=== PATIENT | female | born 1975 | race Caucasian/White ===

== ENCOUNTER 2018-02-25 08:57 | Emergency (ER) | payer OTHER ==
[2018-02-25 09:21] VITALS: BMI 26.5
[2018-02-25] MEDS ORDERED: ACETAMINOPHEN 1000 MG/100 ML VIAL (NON FORMULARY) IVPB ONE (09:37)
[2018-02-25] MEDS ORDERED: SODIUM CHLORIDE 1,000 ML IV STA (09:37)
--- NOTE | 2018-02-25 09:46 | PDOC ---
History of Present Illness - General Chief Complaint: Lightheaded Stated Complaint: DIZZINESS - History of Present Illness Initial Comments: 02/25/18 09:50 The patient is a 42 year old female with no significant PMH who presents to the emergency department with lightheadedness and vaginal bleeding for several days. Pt states that she started having vaginal bleeding 15 days ago, describes it as spotting. Does not report any abnormally heavy bleeding. She states that her LMP was at the end of December and is usually regular and lasts for about 3 days. The patient reports some associated lower abdominal cramping. The patient denies any other symptoms. She denies any fever, chills, nausea, vomiting, diarrhea, constipation or urinary symptoms. She denies any chest pain , shortness of breath. The patient denies any other complaints. Past History - Past Medical History Allergies/Adverse Reactions: Allergies Allergy/AdvReac Type Severity Reaction Status Date / Time No Known Allergies Allergy Verified 11/12/17 07:16 Home Medications: Ambulatory Orders NK [No Known Home Medication] 11/12/17 COPD: No - Immunization History Immunization Up to Date: No - Suicide/Smoking/Psychosocial Hx Smoking History: Never smoked Have you smoked in the past 12 months: No Information on smoking cessation initiated: No Hx Alcohol Use: No Drug/Substance Use Hx: No Substance Use Type: None Review of Systems - Review of Systems Comments:: 02/25/18 09:49 "GENERAL/CONSTITUTIONAL: + lightheadedness, No fever or chills. No weakness. HEAD, EYES, EARS, NOSE AND THROAT: No change in vision. No ear pain or discharge. No sore throat. CARDIOVASCULAR: No chest pain, no shortness of breath, no loss of consciousness RESPIRATORY: No cough, wheezing, or hemoptysis. GASTROINTESTINAL: No nausea, vomiting, diarrhea or constipation. GENITOURINARY: + vaginal bleeding, No dysuria, frequency, or change in urination. MUSCULOSKELETAL: No joint or muscle swelling or pain. No neck or back pain. SKIN: No rash NEUROLOGIC: No vertigo, no change in strength/sensation. ENDOCRINE: No increased thirst. No abnormal weight change. HEMATOLOGIC/LYMPHATIC: No anemia, easy bleeding, or history of blood clots. ALLERGIC/IMMUNOLOGIC: No hives or skin allergy. *Physical Exam - Vital Signs Last Vital Signs Temp Pulse Resp BP Pulse Ox 98.3 F 68 18 123/63 100 02/25/18 08:58 02/25/18 08:58 02/25/18 08:58 02/25/18 08:58 02/25/18 08:58 - Physical Exam Comments: 02/25/18 09:48 "GENERAL: Awake, alert, and fully oriented, in no acute distress. HEAD: No signs of trauma EYES: PERRLA, EOMI, sclera anicteric, conjunctiva clear ENT: Auricles normal inspection, hearing grossly normal, nares patent, oropharynx clear without exudates. Moist mucosa NECK: Nontender, no stepoffs, Normal ROM, supple, no lymphadenopathy, JVD, or masses LUNGS: Breath sounds equal, clear to auscultation bilaterally. No wheezes, and no crackles HEART: Regular rate and rhythm, normal S1 and S2, no murmurs, rubs or gallops ABDOMEN: Soft, + diffuse lower abdominal tenderness most pronounced in suprapubic region, normoactive bowel sounds. No guarding, no rebound. No masses EXTREMITIES: Normal range of motion, no edema. No clubbing or cyanosis. No cords, erythema, or tenderness NEUROLOGICAL: Cranial nerves II through XII intact. 5/5 strength and sensation in all extremities, Normal speech, normal gait, normal cerebellar function SKIN: Warm, Dry, normal turgor, no rashes or lesions noted. : scant blood in vault, os closed, mild adnexal tenderness bilaterally, no CMT ED Treatment Course - LABORATORY CBC & Chemistry Diagram: 02/25/18 10:00 02/25/18 10:00 - RADIOLOGY Radiology Studies Ordered: Category Date Time Status TRANSVAGINAL ULTRASOUND US [US] Stat Ultrasound 02/25/18 09:35 Ordered Medical Decision Making - Medical Decision Making 02/25/18 09:40 42 F with vaginal bleeding x 6 days and lightheadedness. Pt HD stable but will evaluate for symptomatic anemia. Pt's exam notable for suprapubic and diffuse lower abdominal tenderness, likley 2/2 menstrual cramping. Will r/o ectopic vs miscarriage with UPT. Also check UA for cystitis. Low suspicion for appy or colitis as pt with no focal tenderness at mcburney's, no significant LLQ tenderness. However, will consider CT imaging if pt's pain persists. - Labs, UA, UPT - EKG - TVUS - Consider CT 02/25/18 12:47 UPT positive Labs otherwise wnl TVUS pending 02/25/18 14:16 TVUS shows thickened endometrium, no IUP. No adnexal masses or other signs of ectopic. + R ovarian simple cyst Pt is well appearing, with normal vitals. Clinically stable for DC at this time. I discussed the physical exam findings, ancillary test results and final diagnoses with the patient. I answered all of the patient's questions. The patient was satisfied with the care received and felt comfortable with the discharge plan and treatment plan. The patient agrees to follow up with the primary care physician within 24-72 hours. *DC/Admit/Observation/Transfer Diagnosis at time of Disposition: Vaginal bleeding during - Discharge Dispostion Disposition: HOME - Referrals Referrals: Lindsay Campa MD [Staff Physician] - - Patient Instructions Printed Discharge Instructions: DI for Vaginal Bleeding During Additional Instructions: You are . However, we could not see the baby on your ultrasound today. This could be because it is still too early in your to see the baby, or it could mean you are miscarrying. You must follow up with an entry level within 1 week to have a repeat ultrasound and blood tests. There is a possibility you may also have an ectopic , a potentially life threatening emergency. If you experience any worsening bleeding, pain, fevers, or any other concerning symptoms, return to the ER immediately. Ests embarazada. Sin embargo, hoy no pudimos jc al beb en carson ultrasonido. [place] podra deberse a que todava es muy temprano en carson embarazo para jc al beb, o podra significar que est abortando. Debe realizar un seguimiento con un obstetra / gineclogo dentro de 1 semana para que le realicen jono ecografa y exmenes de rosalie repetidos. Existe la posibilidad de que tambin tenga un embarazo ectpico, jono emergencia potencialmente mortal. Si experimenta algn empeoramiento del sangrado, dolor, fiebre o cualquier otro sntoma relacionado, regrese a la edvin de emergencias inmediatamente. - Post Discharge Activity - Attestations Physician Attestion: 02/25/18 14:21 I, Dr. Mg Figueroa MD, attest that this document has been prepared under my direction and personally reviewed by me in its entirety. I further attest, that it accurately reflects all work, treatment, procedures and medical decision -making performed by me.
[2018-02-25 10:20] LABS: BASO % 0.8 % (0-2.0); HEMATOCRIT 28.7 % (32.4-45.2); HEMOGLOBIN 9.3 GM/dL (10.7-15.3); LYMPH % 46.6 % (8-40); MCH 24.1 pg (25.7-33.7); MCHC 32.4 g/dl (32.0-36.0); MEAN CELL VOLUME 74.3 fl (80-96); MEAN PLT VOLUME 7.6 fl (7.5-11.1); MONO % 8.9 % (3.8-10.2); NEUT % 42.7 % (42.8-82.8); PLATELET COUNT 288 K/MM3 (134-434); RBC 3.87 M/mm3 (3.60-5.2); WHITE BLOOD COUNT 4.3 K/mm3 (4.0-10.0)
[2018-02-25 10:50] LABS: ALBUMIN 3.8 g/dl (3.4-5.0); ALK PHOS 58 U/L (45-117); ANION GAP 5 MMOL/L (8-16); BILIRUBIN,TOTAL 0.6 mg/dL (0.2-1); BLOOD UREA NITROGEN 12 mg/dL (7-18); CALCIUM 8.6 mg/dL (8.5-10.1); CHLORIDE 105 mmol/L (98-107); CO2 28 mmol/L (21-32); CREATININE 0.6 mg/dL (0.55-1.3); GLUCOSE,RANDOM 79 mg/dL (74-106); SGOT/AST 9 U/L (15-37); SGPT/ALT 16 U/L (13-61); SODIUM 138 mmol/L (136-145); TOT PROT 7.3 g/dl (6.4-8.2)
[2018-02-25 12:13] LABS: HCG,QUALITATIVE URINE Positive
[2018-02-25 12:28] LABS: URINE APPEARANCE CLEAR; URINE BILIRUBIN NEGATIVE (<2.0 mg/dL); URINE COLOR COLORLESS; URINE GLUCOSE (UA) NEGATIVE (NEGATIVE); URINE KETONE NEGATIVE (NEGATIVE); URINE LEUK ESTERASE NEGATIVE (NEGATIVE); URINE NITRITE NEGATIVE (NEGATIVE); URINE PROTEIN NEGATIVE (NEGATIVE); URINE UROBILINOGEN NEGATIVE mg/dL (0.2-1.0)
[2018-02-25 12:30] LABS: EPI CELLS RARE /HPF (FEW)
[2018-02-25 15:35] VITALS: BP 107/66; PULSE 72; TEMP 98.8
--- NOTE | 2018-02-26 11:49 | EKG ---
Test Reason : Blood Pressure : / mmHG Vent. Rate : 057 BPM Atrial Rate : 057 BPM P-R Int : 142 ms QRS Dur : 076 ms QT Int : 416 ms P-R-T Axes : 065 069 052 degrees QTc Int : 404 ms SINUS BRADYCARDIA POSSIBLE LEFT ATRIAL ENLARGEMENT BORDERLINE ECG NO PREVIOUS ECGS AVAILABLE Confirmed by MICHELLE ALONZO, ANNETTE ([id number]) on 02/26/2018 11:48:27 AM Referred By: Confirmed By:ANNETTE MARTINEZ MD
== END 2018-02-25 15:35 | disposition home or self-care (01) ==
LOC: JER 08:57
PROC: 3E0337Z Introduction of Electrolytic and Water Balance Substance into Peripheral Vein, Percutaneous Approach (ICD-10-PCS; principal; 2018-02-25)
DX: O26.891 Other specified pregnancy related conditions, first trimester (principal); Z3A.01 Less than 8 weeks gestation of pregnancy; N93.9 Abnormal uterine and vaginal bleeding, unspecified
CPT/HCPCS: 36415; 76830-TC; 80053; 81003; 81015; 82550; 84484; 84702; 84703; 85025; 86850; 86900; 86901; 87086; 93005; 93010; 99282-25; J7030

== ENCOUNTER 2018-03-09 14:39 | Day surgery (SDC) | payer OTHER ==
[2018-03-03 17:56] VITALS: BMI 27.4
--- NOTE | 2018-03-09 14:55 | HP ---
History & Physical Update - History History: No Change - Physical Physical: No Change - Assessment Assessment: No Change - Plan Plan: No Change (incomplete . for suction D&C)
[2018-03-09] MEDS ORDERED: IBUPROFEN 800 MG/8 ML IJ IVPB PRN (14:56)
[2018-03-09] MEDS ORDERED: ACETAMINOPHEN 325 MG TABLET (FP) PO PRN (14:56)
[2018-03-09] MEDS ORDERED: LACTATED RINGERS SOLUTION 1,000 ML IV SCH ×2 (15:00→17:15)
--- NOTE | 2018-03-09 16:08 | HP ---
Admitting History and Physical - Admission Chief Complaint: Here for D&C History of Present Illness: 42 y/o with SIUP at unknown gestational age with LMP 01/01/18. PT seen in the office after having bleeding for several weeks and found to have an incomplete . BHCG approx 4500. No other issues/History. History Source: Patient, Medical Record Limitations to Obtaining History: Language Barrier - Past Medical History ...LMP: 01/11/18 ...LMP Comment: bleeding now ...: Yes (incomplete ) - Past Surgical History Additional Past Surgical History: breast reduction - Smoking History Smoking history: Never smoked Have you smoked in the past 12 months: No - Alcohol/Substance Use Hx Alcohol Use: No - Social History Usual Living Arrangement: Yes: With Spouse ADL: Independent History of Recent Travel: No Home Medications - Allergies Allergies/Adverse Reactions: Allergies Allergy/AdvReac Type Severity Reaction Status Date / Time No Known Allergies Allergy Verified 03/09/18 15:45 - Home Medications Home Medications: Ambulatory Orders Acetaminophen [Tylenol] 650 mg PO PRN PRN 03/09/18 Review of Systems - Review of Systems Constitutional: reports: No Symptoms Eyes: reports: No Symptoms HENT: reports: No Symptoms Neck: reports: No Symptoms Cardiovascular: reports: No Symptoms Respiratory: reports: No Symptoms Gastrointestinal: reports: No Symptoms Genitourinary: reports: No Symptoms Breasts: reports: No Symptoms Reported Musculoskeletal: reports: No Symptoms Integumentary: reports: No Symptoms Neurological: reports: No Symptoms Endocrine: reports: No Symptoms Hematology/Lymphatic: reports: No Symptoms Psychiatric: reports: No Symptoms Physical Examination Vital Signs: Vital Signs Temperature 98.2 F 03/09/18 15:43 Pulse Rate 68 03/09/18 15:43 Respiratory Rate 20 03/09/18 15:43 Blood Pressure 98/70 03/09/18 15:43 O2 Sat by Pulse Oximetry (%) 100 03/09/18 15:42 Constitutional: Yes: Well Nourished, No Distress, Calm Eyes: Yes: WNL HENT: Yes: WNL Neck: Yes: Supple Respiratory: Yes: Regular Renal/: Yes: Vaginal Bleeding (light/spotting) Neurological: Yes: Alert, Oriented Psychiatric: Yes: Alert, Oriented Problem List - Problems (1) Incomplete Code(s): O03.4 - INCOMPLETE SPONTANEOUS WITHOUT COMPLICATION Assessment/Plan 42 y/o with incomplete for suction D&C consents signed questions answered
[2018-03-09] MEDS ORDERED: MIDAZOLAM HCL 2 MG/2 ML SINGLE DOSE VIAL ONE ×2 (16:20)
[2018-03-09] MEDS ORDERED: PROPOFOL 20 ML ONE ×2 (16:36)
[2018-03-09] MEDS ORDERED: KETOROLAC TROMETHAMINE 30 MG/1 ML VIAL ONE (16:46)
[2018-03-09] MEDS ORDERED: PROMETHAZINE HCL 25 MG/1 ML VIAL IVPB PRN (17:02)
[2018-03-09] MEDS ORDERED: ONDANSETRON 4 MG/2 ML VIAL IVPUSH PRN (17:02)
[2018-03-09] MEDS ORDERED: oxyCODONE HCL 5 MG TABLET PO PRN (17:02)
[2018-03-09 17:44] VITALS: TEMP 98.2
[2018-03-09 18:31] VITALS: BP 107/54; PULSE 81
--- NOTE | 2018-03-11 10:26 | OP ---
Operative Note - Note: Operative Date: 03/09/18 Pre-Operative Diagnosis: incomplete Operation: Suction D&C Post-Operative Diagnosis: Same as Pre-op Surgeon: Ria Charlton Anesthesiologist/GENERAL MAINTENANCE TECHNICIAN: Aaron Guerrier Anesthesia: General (wtih LMA) Specimens Removed: products of conception Estimated Blood Loss (mls): 10 Operative Report Dictated: Yes
--- NOTE | 2018-03-11 11:18 | OP ---
DATE OF OPERATION: 03/09/2018 PREOPERATIVE DIAGNOSIS: Incomplete . POSTOPERATIVE DIAGNOSIS: Incomplete . PROCEDURE: Suction dilatation and curettage. SURGEON: Ria Charlton MD ANESTHESIA: General with LMA with Dr. Aaron Guerrier. BRAKE DRUM LATHE OPERATOR: None. COMPLICATIONS: None. SPECIMENS: Products of conception. ESTIMATED BLOOD LOSS: 10 mL. COUNTS: Sponge and instrument counts correct. DISPOSITION: Stable to PACU. BRIEF HISTORY AND PROCEDURE: Patient is a 42-year-old female who had been seen in the emergency department with bleeding during . She was evaluated after discharge in my office and found to have an incomplete spontaneous . Patient was counseled on her options, and she elected to undergo a D and C procedure to remove the remainder of the products of conception. The consent for the procedure was signed upon admission March 09, 2018. She was admitted to the hospital on that date and after consents were signed, she was then taken back to the operating room and given general anesthesia by Dr. Aaron Guerrier with LMA. She was placed in the dorsal lithotomy position. After the speculum were placed inside the vagina, the anterior lip of the cervix was grasped with a tenaculum, and the cervix was dilated to accommodate a size 7 suction curette, which was advanced to the fundus of the uterus. On several passes, the suction curette was completed, and the tissue was sent to Pathology for permanent evaluation. Using a sharp curette, sharp curettage was completed in all 4 pierce of the uterus until adequate uterine cry was appreciated, and one final pass of the suction curette was completed. All instruments were then removed from the vagina, and the bleeding from the tenaculum site was controlled with a brief application of an Allis clamp. Minimal bleeding was noted from the cervical os. Sponge and instrument counts were reported to be correct. The patient tolerated the procedure well and was recovering in stable condition in the PACU after the procedure. RIA CHARLTON DO /[id number]
--- NOTE | 2018-03-11 18:01 | PATH ---
Surgical Pathology Report Patient Name: YVONNE MARIA [facility]. Rec. #: [id number] /Age/Gender: 1975 (Age: 42) / F Account: [id number] Location: [facility] Taken: 03/09/2018 Received: 03/10/2018 Reported: 03/11/2018 Physicians: Ria Charlton M.D. Specimen(s) Received PRODUCTS OF CONCEPTION Clinical History Incomplete , possible molar Final Diagnosis PRODUCTS OF CONCEPTION: TROPHOBLASTS AND DECIDUAL TISSUE PRESENT, CONSISTENT WITH PRODUCTS OF CONCEPTION, IN A BACKGROUND OF WEAKLY PROLIFERATIVE ENDOMETRIUM. SEPARATE ENDOCERVICAL TISSUE WITH SQUAMOUS METAPLASIA AND ACUTE INFLAMMATION. NO CHORIONIC VILLI PRESENT. Electronically Signed Kristina Camejo M.D. Gross Description Received in formalin labeled "products of conception," is a 3.0 x 3.0 x 0.4 cm aggregate of conte soft tissue fragments. No definite villous tissue or somatic tissue is identified. The formalin is filtered and the specimen is entirely submitted in 2 cassettes. /03/10/2018 saudi03/10/2018
== END 2018-03-09 18:38 | disposition home or self-care (01) ==
LOC: JASU-SURG 14:39
PROVIDERS: ATTEND Obstetrics & Gynecology
PROC: 10D17ZZ Extraction of Products of Conception, Retained, Via Natural or Artificial Opening (ICD-10-PCS; principal; 2018-03-09 16:30)
DX: O03.4 Incomplete spontaneous abortion without complication (principal)
CPT/HCPCS: 36415; 84702; 86850; 86900; 86901; 88305-TC; 94760